=== PATIENT | female | born 1990 | race African-American/Black ===

== ENCOUNTER 2022-07-08 00:12 | Emergency (ER) | payer OTHER, SELFPAY ==
[2022-07-08] VITALS (10 sets, daily range): BP systolic 118–130; BP diastolic 66–82; PULSE 68–92; RESP 16–18; TEMP 36.8; O2SAT 97–100
--- NOTE | ~2022-07-08 | CT_ITS ---
EXAMINATION: CT abdomen pelvis w con DATE: 07/08/2022 02:44 INDICATION: Low abdominal pain. TECHNIQUE: Computed tomography (CT) of the abdomen and pelvis was performed with 100 mL Omnipaque 350 intravenous contrast. Automated exposure control and iterative reconstruction technique were employe d. The dose-length product was 441.57 mGy-cm. COMPARISON: None. FINDINGS: The visualized portions of the lung bases demonstrate minimal atelectasis on the right. No pleural effusion. The heart size is normal. No pericardial effusion. The liver, gallbladder, spleen, pancreas, adrenal glands, and kidneys are normal. There are no dilated loops of bowel. The appendix i s normal. There are no pathologically enlarged lymph nodes. There is physiologic fluid in the pelvis. There are old healed fractures of right superior and inferior pubic rami and left parasymphyseal pub is. There is severe right hip posttraumatic osteoarthritis. There is mild left hip osteoarthritis. IMPRESSION: 1. Severe posttraumatic osteoarthritis of right hip. Reviewed, dictated and finalized at location [facility].
--- NOTE | ~2022-07-08 | US_ITS ---
EXAMINATION: US pelvic complete w TV DATE: 07/08/2022 07:28 INDICATION: Right lower quadrant abdominal pain. TECHNIQUE: Multiple transabdominal and transvaginal sonographic images of the pelvis were obtained. COMPARISON: CT abdomen and pelvis 07/08/2022 FINDINGS: TRANSABDOMINAL ULTRASOUND: The uterus measures 10.1 x 5.3 x 6.8 cm. There is no free fluid in the pelvis. TRANSVAGINAL ULTRASOUND: The endometrial complex measures 12 mm in thickness. There is a 1.2 cm intramural fibroid. The right ovary measures 2.7 x 1.6 x 2.4 cm. The left ovary measures 3.7 x 2.2 x 2.6 cm. There is normal vascul ar flow in the ovaries. IMPRESSION: 1. Small intramural fibroid. Reviewed, dictated and finalized at location [facility].
--- NOTE | 2022-07-08 00:55 | PC.NURSE ---
pt and her S.O are deciding whether to stay here or go somewhere because S.O upset pt cannot take pt's 10yr old child in the ED.
--- NOTE | 2022-07-08 00:57 | PC.NURSE ---
significant other came to desk demanding pt be taken back to ED because her pain has increased. He then stated i know you take people back by acuity but she is in pain. Pt did not appear in any distress. He then said to pt babe you want to go somewhere else.
--- NOTE | 2022-07-08 01:13 | PC.NURSE ---
pt decided to be seen in ED
[2022-07-08 01:44] LABS: Basophils Absolute Auto 0.1 K/mm3 (0.0-0.1); Eosinophils Absolute Auto 0.4 K/mm3 (0-0.3); Hematocrit 32.3 % (37.0-47.0); Hemoglobin 10.5 g/dL (12.0-15.0); Immature Granulocyte Absolute 0.02 K/mm3 (0.00-0.031); Immature Granulocyte Percent A 0.2 % (0-0.5); Lymphocytes Absolute Auto 2.94 K/mm3 (0.9-3.2); Mean Corpuscular HGB Conc 32.5 g/dl (32-36); Mean Corpuscular Hemoglobin 27.3 pg (26-34); Mean Corpuscular Volume 84.1 fl (80-100); Mean Platelet Volume 9.8 fl (7.4-10.4); Monocytes Absolute Auto 0.8 K/mm3 (0.1-0.6); Monocytes Percent Auto 9.8 % (2.6-8.5); Neutrophils Absolute Auto 4.1 K/mm3 (1.3-6.7); Platelet Count Result 290 k/mm3 (150-375); Red Blood Count 3.84 M/mm3 (4.2-5.4); Red Cell Distribution Width 14.1 % (11.5-14.5); White Blood Count 8.4 K/mm3 (4.5-10.0)
[2022-07-08 01:55] LABS: Alanine Aminotransferase 6 U/L (6-35); Alkaline Phosphatase 64 U/L (38-126); Anion Gap 6 mmol/L (8-16); Aspartate Amino Transferase 21 U/L (14-36); Bilirubin,Total 0.2 mg/dL (0.2-1.3); Blood Urea Nitrogen 10 mg/dL (7-17); Calcium 8.4 mg/dL (8.4-10.2); Carbon Dioxide 30 mmol/L (22-30); Chloride 99 mmol/L (98-107); Estimated CRCL calculation 91 ml/min; Estimated Glomerular Filt Rate > 60; Glucose 90 mg/dL (65-110); Lipase 42 U/L (23-300); Potassium 3.7 mmol/L (3.4-5.0); Sodium 135 mmol/L (137-145)
--- NOTE | 2022-07-08 01:56 | ED.ABDPAIN ---
HPI - Abdominal Pain General Chief Complaint: Abdominal Pain <DO Edd Cruz Last Filed: 07/08/22 06:32> Stated Complaint: Abdominal pain <DO Edd Cruz Last Filed: 07/08/22 06:32> Time Seen by Provider: 07/08/22 00:51 <DO Edd Cruz Last Filed: 07/08/22 06:32> Source: RN notes reviewed <DO Edd Cruz Last Filed: 07/08/22 06:32> History of Present Illness HPI narrative: Patient presents emergency room from home for abdominal pain. Patient states pain has been ongoing for the past 2 days the pain is located in right lower quadrant and radiates into the back. Described as sharp and stabbing denies any fevers or chills nausea vomiting diarrhea or any other symptoms states she is not take anything for the pain. <DO Edd Cruz Last Filed: 07/08/22 06:32> Related Data Allergies/Adverse Reactions: Allergies Allergy/AdvReac Type Severity Reaction Status Date / Time No Known Allergies Allergy Verified 07/08/22 00:21 <DO Edd Cruz Last Filed: 07/08/22 06:32> Review of Systems Review of Systems: Gen.: Denies fevers or chills ENT: Denies congestion Respiratory: Denies shortness of breath or cough CV: Denies chest pain or palpitations GI: see HPI denies burning, urgency, frequency or hematuria Musculoskeletal: Denies back pain or muscle pain Neuro: Denies numbness, tingling, weakness or focal weakness Skin: Denies rash Except as documented, all other systems reviewed and negative <DO Edd Cruz Last Filed: 07/08/22 06:32> PMFSH Past Medical History Medical History: Medical History (Updated 07/08/22 @ 06:32 by Parth Trejo DO) Patient denies significant medical history <DO Edd Cruz Last Filed: 07/08/22 06:32> Social History Social History: Social History (Updated 07/08/22 @ 01:57 by Parth Trejo DO) Smoking status: Never smoker <DO Edd Cruz Last Filed: 07/08/22 06:32> Exam Narrative: APPEARANCE: No acute distress, nontoxic, resting in bed HEENT: Normocephalic, atraumatic, OMM RESPIRATORY: No respiratory distress, clear to auscultation bilaterally with no rhonchi wheezing or rales CARDIOVASCULAR: RRR s murmur ABDOMINAL: Soft nondistended tender palpation right lower quadrant no tenderness right upper quadrant, left lower quadrant left or left upper quadrant, no rebound or guarding : Normal external exam small amount of white discharge in vaginal canal cervix is closed right adnexal tenderness no left adnexal tenderness no cervical motion tenderness MUSCULOSKELETAl: Moves all extremities. No clubbing, cyanosis or edema. NEURO: Awake and alert. Following commands, speech normal, no focal deficits SKIN:: Warm, dry. Normal Color PSYCHIATRIC: Normal affect/mood <Parth Trejo DO - Last Filed: 07/08/22 06:32> Course Course Emergency Course: Signed out pending US, this shows small fibroid otherwise normal. Will DC as planned with strict return precautions and f/u to PCP. <Gabi Hardy MD - Last Filed: 07/08/22 08:19> Vital Signs Vital signs: Vital Signs Temperature 98.3 F 07/08/22 00:17 Pulse Rate 92 07/08/22 00:17 Respiratory Rate 18 07/08/22 00:17 Blood Pressure 130/82 07/08/22 00:17 Pulse Oximetry 100 07/08/22 00:17 Oxygen Delivery Room Air 07/08/22 00:17 Temperature 98.3 F 07/08/22 00:17 Pulse Rate 92 07/08/22 00:17 Respiratory Rate 18 07/08/22 00:17 Blood Pressure 130/82 07/08/22 00:17 Pulse Oximetry 100 07/08/22 00:17 Oxygen Delivery Room Air 07/08/22 00:17 <Parth Trejo DO - Last Filed: 07/08/22 06:32> Vital Signs Temperature 98.3 F 07/08/22 00:17 Pulse Rate 92 07/08/22 00:17 Respiratory Rate 18 07/08/22 00:17 Blood Pressure 130/82 07/08/22 00:17 Pulse Oximetry 100 07/08/22 00:17 Oxygen Delivery Room Air 07/08/22 00:17 Temperature 98.3 F 07/08/22 00
[2022-07-08 02:17] LABS: Appearance Urine Clear (Clear); Bilirubin Urine Negative (Negative); Color Urine Yellow (Yellow); Glucose Urine UA Negative (Negative); Ketones Urine Negative (Negative); Leukocyte Esterase Ur Negative LEU/UL (Negative); Nitrate Urine Negative (Negative); Protein Urine Negative (Negative); Urobilinogen Urine 0.2 mg/dL (<2.0)
[2022-07-08] MEDS: KETOROLAC 30 MG/ML VIAL (*BKC) IV PUSH (02:18)
[2022-07-08] MEDS: SODIUM CHLORIDE 0.9% IV 1,000 ML 999 ML IV CONT (02:18)
[2022-07-08 02:34] LABS: Add Urine Microscopic? YES; Blood Urine Trace-Intact (Negative); Mucus Urine Rare /lpf; RBC Urine 0-2 /hpf (0-2); Squamous Epithelial Cell Urine Occasional /hpf (Few); WBC Urine 0-3 /hpf
[2022-07-08] MEDS: SODIUM CHLORIDE 0.9% IV 100 ML 500 ML (04:30)
[2022-07-08] MEDS: MORPHINE SULFATE (*CRX) 4 MG/ML INJ IV PUSH (04:32)
== END 2022-07-08 08:34 | disposition home or self-care (01) ==
PROVIDERS: Emergency Provider Emergency Medicine
DX: D25.1 Intramural leiomyoma of uterus (principal)
CPT/HCPCS: 36415; 74177; 76830; 76856; 80053; 81001; 81025; 83690; 85025; 87070; 87491; 87591; 87808; 96361; 96374; 96375; 99284; J1885; J2270; J7030; Q9967

== ENCOUNTER 2022-09-13 20:22 | Emergency (ER) | payer OTHER, SELFPAY ==
--- NOTE | ~2022-09-13 | US_ITS ---
US OB <=14 wk fetus w TV DATE: 09/13/2022 21:55 INDICATION: Vaginal bleeding, pelvic pain TECHNIQUE: Real-time imaging, Doppler analysis. Transabdominal and transvaginal approaches COMPARISON: 07/10/2022 pelvic ultrasound FINDINGS: The uterus measures 13 x 6 cm height, 6.4 cm AP dimension. There is an intrauterine gestational sac in the lower uterine segment with identification of po le and yolk sac. However, no cardiac motion is detected. [place] rump length measures 1.8 cm cons istent with demise at 7 weeks 3 days approximate gestational age. IMPRESSION: Impending . Nonviable fetus. Reviewed, dictated and finalized at [facility]. Reviewed, dictated and finalized at location A.
[2022-09-13 20:21] VITALS: BP 126/76; PULSE 89; RESP 16; TEMP 35.7; O2SAT 100
[2022-09-13 20:47] LABS: Basophils Absolute Auto 0.1 K/mm3 (0.0-0.1); Basophils Percent Auto 0.6 % (0.2-1.2); Eosinophils Absolute Auto 0.2 K/mm3 (0-0.3); Eosinophils Percent Auto 1.8 % (0-4.4); Hematocrit 32.2 % (37.0-47.0); Hemoglobin 10.6 g/dL (12.0-15.0); Immature Granulocyte Absolute 0.03 K/mm3 (0.00-0.031); Immature Granulocyte Percent A 0.3 % (0-0.5); Lymphocytes Absolute Auto 3.32 K/mm3 (0.9-3.2); Lymphocytes Percent Auto 27.8 % (18.3-44.2); Mean Corpuscular HGB Conc 32.9 g/dl (32-36); Mean Corpuscular Volume 81.9 fl (80-100); Mean Platelet Volume 9.7 fl (7.4-10.4); Monocytes Absolute Auto 0.9 K/mm3 (0.1-0.6); Monocytes Percent Auto 7.5 % (2.6-8.5); Neutrophils Absolute Auto 7.4 K/mm3 (1.3-6.7); Platelet Count Result 305 k/mm3 (150-375); Red Blood Count 3.93 M/mm3 (4.2-5.4); Red Cell Distribution Width 13.3 % (11.5-14.5); White Blood Count 11.9 K/mm3 (4.5-10.0)
--- NOTE | 2022-09-13 21:07 | ED.PREGNANCY ---
HPI - General Chief complaint: Vaginal Bleeding <Morelia Cowan PA-C - Last Filed: 09/13/22 23:07> Stated complaint: /VAG BLEED <Morelia Cowan PA-C - Last Filed: 09/13/22 23:07> Time Seen by Provider: 09/13/22 20:38 <Morelia Cowan PA-C - Last Filed: 09/13/22 23:07> Source: patient <HUGO Chappell Last Filed: 09/13/22 23:07> Mode of arrival: EMS <HUGO Chappell Last Filed: 09/13/22 23:07> Limitations: no limitations <HUGO Chappell Last Filed: 09/13/22 23:07> History of Present Illness HPI Narrative: This is a 32-year-old female, about 8 weeks by LMP, that presents to the emergency department for vaginal bleeding. Ongoing since yesterday. She was evaluated at another ER this morning, but is unsure of the results of her ultrasound. Reports pelvic cramping. Denies fevers or vomiting. <Morelia Cowan PA-C - Last Filed: 09/13/22 23:07> Related Data Allergies/Adverse reactions: Allergies Allergy/AdvReac Type Severity Reaction Status Date / Time No Known Allergies Allergy Verified 09/13/22 20:26 <Morelia Cowan PA-C - Last Filed: 09/13/22 23:07> Review of Systems Review of Systems: CONSTITUTIONAL: Denies fever GASTROINTESTINAL: Reports abdominal pain. Denies nausea, vomiting <HUGO Chappell Last Filed: 09/13/22 23:07> All systems reviewed & are unremarkable except as noted in HPI and below <HUGO Chappell Last Filed: 09/13/22 23:07> [facility] Past Medical History Medical History: Medical History (Updated 09/14/22 @ 00:00 by Background Daemon) Patient denies significant medical history <HUGO Chappell Last Filed: 09/13/22 23:07> Social History Social History: Social History (Updated 07/08/22 @ 01:57 by Parth Trejo DO) Smoking status: Never smoker <Morelia Cowan PA-C - Last Filed: 09/13/22 23:07> Exam Narrative: GENERAL: Well-appearing, well-nourished, and in no acute distress. HEAD: Normocephalic, atraumatic. EYES: EOMI. CHEST: Clear to auscultation. No respiratory distress. No wheezes rales or rhonchi HEART: Regular rate and rhythm. No murmur heard. Normal peripheral pulses. ABDOMEN: Soft, nontender, nondistended, normal active bowel sounds. EXTREMITIES: Normal range of motion. No edema. SKIN: Warm, dry, no rash. NEURO: No focal deficits. Alert and oriented x3. PSYCH: Normal mood and affect PELVIC: Normal external genitalia. Small amount of dark red blood in the vaginal vault <Morelia Cowan PA-C - Last Filed: 09/13/22 23:07> Course PERCUSSION TUNER/PA Physician Supervision For this patient encounter, I reviewed the PERCUSSION TUNER or PA documentation, treatment plan, and medical decision making <Tyler King MD - Last Filed: 09/19/22 08:06> Consultations Consultation #1: Spoke with Dr. Martin about patient and workup who will follow up in clinic. <Morelia Cowan PA-C - Last Filed: 09/13/22 23:07> Date: 09/13/22 <Morelia Cowan PA-C - Last Filed: 09/13/22 23:07> Vital Signs Vital signs: Vital Signs Temperature 96.2 F L 09/13/22 20:21 Pulse Rate 89 09/13/22 20:21 Respiratory Rate 16 09/13/22 20:21 Blood Pressure 126/76 09/13/22 20:21 Pulse Oximetry 100 09/13/22 20:21 Oxygen Delivery Room Air 09/13/22 20:21 Temperature 96.2 F L 09/13/22 20:21 Pulse Rate 79 09/13/22 23:13 Respiratory Rate 18 09/13/22 23:13 Blood Pressure 103/72 09/13/22 23:13 Pulse Oximetry 100 09/13/22 23:13 Oxygen Delivery Room Air 09/13/22 20:21 <Morelia Cowan PA-C - Last Filed: 09/13/22 23:07> Vital Signs Temperature 96.2 F L 09/13/22 20:21 Pulse Rate 89 09/13/22 20:21 Respiratory Rate 16 09/13/22 20:21 Blood Pressure 126/76 09/13/22 20:21 Pulse Oximetry 100 09/13/22 20:21 Oxygen Delivery Room Air 09/13/22 20:21 Temperature 96.2 F L 09/13/22 20:21 Pulse Rate 79 09/13/22 23:13 Respir
--- NOTE | 2022-09-13 21:42 | PC.NURSE ---
Out of department for testing
--- NOTE | 2022-09-13 21:49 | PC.NURSE ---
Back to room from ultrasound at this time is not currently screaming out or trying to climb off of stretcher
[2022-09-13 22:46] VITALS: BP 106/62; PULSE 74; RESP 18; O2SAT 100
[2022-09-13 23:13] VITALS: BP 103/72; PULSE 79; RESP 18; O2SAT 100
== END 2022-09-13 23:13 | disposition home or self-care (01) ==
PROVIDERS: Physician Assistant; Emergency Provider Emergency Medicine
DX: O20.0 Threatened abortion (principal); Z3A.08 8 weeks gestation of pregnancy
CPT/HCPCS: 36415; 76801; 76817; 84702; 85025; 85461; 86880; 96365; 99284; J0131